=== PATIENT | female | born 1995 | race Two or more races ===

== ENCOUNTER 2016-11-19 12:35 | Inpatient (IN) | payer SELFPAY ==
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
[2016-11-19 13:44] LABS: % IMMATURE GRANULYOCYTES 0.7 % (0.0-1.1); ABSOLUTE IMMATURE GRANULOCYTES 0.06 10^3/uL (0.00-0.10); ADD DIFF? NO; ADD MORPH? NO; ADD SCAN? NO; ATYPICAL LYMPHOCYTE FLAG 0 (0-99); FRAGMENT RBC FLAG 0 (0-99); HEMATOCRIT 39.4 % (38.0-47.0); HEMOGLOBIN 13.9 g/dL (12.6-16.3); LEFT SHIFT FLG 0 (0-99); LIPEMIA HEMOLYSIS FLAG 90 (0-99); MEAN CELL HEMOGLOBIN 29.3 pg (27.9-34.1); MEAN CELL HEMOGLOBIN CONCENTR. 35.3 g/dL (32.4-36.7); MEAN CELL VOLUME 82.9 fL (81.5-99.8); MEAN PLATELET VOLUME 10.4 fL (8.7-11.7); PLATELET CLUMPS FLAG 0 (0-99); PLATELET COUNT 331 10^3/uL (150-400); RED BLOOD CELL COUNT 4.75 10^6/uL (4.18-5.33); RED CELL DISTRIBUTION WIDTH 12.9 % (11.5-15.2)
[2016-11-19 13:51] LABS: ANION GAP 17 mEq/L (8-16); CALCIUM 9.6 mg/dL (8.5-10.4); CARBON DIOXIDE 16 mEq/l (22-31); CHLORIDE 104 mEq/L (97-110); CREATININE 0.7 mg/dL (0.6-1.0); GLOMERULAR FILTRATION RATE > 60; GLUCOSE 77 mg/dL (70-100); POTASSIUM 4.3 mEq/L (3.5-5.2); SODIUM 137 mEq/L (134-144)
[2016-11-19 14:07] LABS: ETHANOL SERUM < 10 mg/dL (0-10)
[2016-11-20] MEDS: PRENATAL VIT 1 EACH TAB PO SCH (08:46)
[2016-11-20] MEDS ORDERED: MAG HYDROX/AL HYDROX/SIMETH 30 ML UDCUP PO PRN (13:25)
[2016-11-20] MEDS ORDERED: MAGNESIUM HYDROXIDE 30 ML UDCUP PO PRN (13:25)
[2016-11-20] MEDS ORDERED: ACETAMINOPHEN 325 MG TAB PO PRN (13:25)
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
[2016-11-21] MEDS: PRENATAL VIT 1 EACH TAB PO SCH (08:33)
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
[2016-11-21] MEDS ORDERED: BACITRACIN OINTMENT 1 PACKET TP ONE (20:33)
[2016-11-22 06:25] VITALS: BP 100/56; PULSE 76; RESP 16; TEMP 98.4; O2SAT 97
[2016-11-22] MEDS: PRENATAL VIT 1 EACH TAB PO SCH (11:51)
--- NOTE | 2016-11-22 13:06 | SOAPPROG ---
SOAP Progress Note Assessment/Plan: Assessment: Plan: M-1 expiring today. pt desires discharge. no indication for continued hospitalization. f/u appts in place. stable for d/c. denied SI. future-oriented and with "good" mood and full affect. sister and boyfriend will pickle cutter. discharge dictation to follow. Objective: Vital Signs Temp Pulse Resp BP Pulse Ox 36.9 C 76 16 100/56 L 97 11/22/16 06:00 11/22/16 06:00 11/22/16 06:00 11/22/16 06:00 11/22/16 06:00 Laboratory Results 11/19/16 Unknown - Time Spent With Patient Time Spent With Patient: 35min - Pending Discharge Pending Discharge Within 24 Hours: Yes Pending Discharge Date: 11/22/16 Pending Discharge Time: 11:00 ICD10 Worksheet Patient Problems: Problems Problem Status Onset Suicidal ideation Acute
--- NOTE | 2016-11-24 16:22 | BDS ---
[f rep st] BEHAVIORAL HEALTH DISCHARGE SUMMARY BRIEF HISTORY: The patient is a 21-year-old [employer] female who was sent to the [facility] ED on an M-1 from [facility] after she presented there with her sister. She had attempted suicide the night before by cutting on herself in the bathtub while intoxicated. Earlier in the evening she attempted to hang self from shower curtain following a fight with her sister and feeling hopeless. Per patient, she had not been this intoxicated in six months. Due to the two suicide attempts within the prior 24 hours, [facility] and send her to ED for further evaluation, and she was admitted to the inpatient psychiatry unit. While in the ED, she found out she was . Her chief complaint on admission was "I just act impulsively sometimes." She is a senior at [employer] on a scholarship from [facility] who is living with her twin sister, who also is attending the [employer] engineering program on scholarship. Patient reports functioning normally over the past several months but experienced some interpersonal conflicts over the past week. The conflict was over her being in a relationship with a previously good friend's ex- boyfriend approximately 4 days prior to admission. Then the following day, the patient had a conflict with her sister around a boyfriend that her sister is seeing that she did not feel comfortable having around. The conflict with her sister became physical the following day, which was quite emotionally upsetting to the patient. After having the initial conflict with her previously good friend, she admitted taking a handful of prescription sleeping medication, then went to bed, and did not disclose this. Following the argument with her sister and physical conflict, she went to the bathroom, locked the door, and tied the sash from her robe around her neck, hanging it over the shower curtain, which subsequently fell down and her sister heard this, came in and saw her with the sash around her neck. After telling her sister everything was okay, nothing else was done. Later that evening she went out with her sister and friends and her boyfriend and "got really drunk." When they returned to her home, patient reports she apparently went to the bathroom, locked the door, turned on the bathtub, and began making superficial cuts on her wrists with a knife. Subsequently, her boyfriend broke the door down, got her out of the tub and took her to bed where she slept until the next morning. She then talked with her sister who took her to [facility] and they placed her on an M1 hold as noted above. Patient denied any longer feeling suicidal but was admitted for further evaluation. She consistently reported feeling this had been an acute issue, and did not give any symptoms consistent with a major depressive episode or other major mood disorder, and did not feel she needed any medication because she believed this was situational. She did admit that finding out she was while in the emergency department was an additional stressor, and the was experiencing the stress of school, which starts on 11/23/2016, due to her being on academic probation and needing to get good grades this year in order to graduate. She also worried about her relationship with her sister since it had been more conflictual recently. HOSPITAL COURSE: The patient was admitted to the unit and did engage in the therapeutic milieu and attended groups. There were no attempts to harm herself, and she consistently reported that her suicide attempts had been impulsive, which she regretted, and she did not recall details of the attempt with self- inflicted superficial lacerations due to being very intoxicated. She consistently related the incidents, as reported on admission, during interview again over the weekend. She was able to talk about all of her psychosocial stressors and interpersonal drama occurring over the previous week which had been upsetting to her. She states she was feeling really angry with her friends about "stupid" things. She felt upset initially because she felt her sister was taking her friend's side and was "against" her being with her current boyfriend "Cornelius" since he was an ex-boyfriend of a good friend. Patient related other conflicts with her sister occurring this week, including her frequently having another boy over to their place, who had previously been briefly involved with the patient and bragged about being with the both sisters. This she felt was disrespectful, and she was upset by her sister often having him over. Since being in the hospital, the Summer had an opportunity to speak more with her sister about recent events and her feelings, and felt supported by her. She was glad to have resolved the conflict with her sister as she feels close to her. She reports that she also spoke with her parents, which helped also resolve the conflicts between the sisters, but she did not want them to know about her self harm attempts or hospitalization. Patient states all were in agreement "to not let any guys sleep over at the house" anymore. Also, patient reports she and her sister committed to not engage in any more physical aggression towards each other. Since they share finances, she said they agreed that whomever started a fight would have to pay the other one money. She feels this would work for them. Another positive for Summer was that her sister "got to know and respect" her boyfriend, who apparently is the father of this . Patient reports her sister "likes Cornelius" because she noticed that he had been respectful and supportive through recent events. Summer is looking forward to returning to [employer] [place] for the holidays/ winter break with her sister. She reports they already got tickets to return. She states last when she returned to [employer] [facility] [place], "everything was normal, " there was "no drama". When there last year, she felt her mood was good, and that she did not feel she needed any medications, as she has a history of taking Lexapro. She was able to focus on her studies last semester (Spring 2016) , admits to drinking much less, and did make a little bit better grades. She related that the prior Fall 2015 she was drinking more and grades were dropping so she "had to change" her behaviors and "focus on school", which she did in Spring, and feels she must now do again. She denied any symptoms of Major Depressive d/o, denied any clear manic or hypomanic symptoms or history, or any psychotic symptoms or history of such. If team felt strongly that she needed medications, she would take them, but she preferred not to, again reiterating that this was situational and she had felt stable prior. Education was done around alcohol use and her binging pattern, its effects on mental health and impulse control and judgment, and , and also with concerns about her positive family history. Summer agreed she needed to abstain, and planned to try to do so and focus instead on making and maintaining good grades for the next 3 semesters in order to graduate. She states sister, who is in the same program, has an easier time with the academics but they have agreed to work together to focus on graduating. Patient also was able to talk about the therapeutic benefit she received from attending groups and talking with peers, also reading the "Suicide is Forever" book. She felt this put many things in perspective and was "eye-opening." She feels she had never been that much of an "emotional mess" as she was over the prior week. Regarding her reported overdose on sleeping medication 1 week earlier, she reports that she "just wanted to sleep" and took "only 10" pills of what she thinks were hydroxyzine. She reports she knew this would not be harmful as she was prescribed to take 3 times a day maximum p.r.n. from an old prescription, and knew these pills were not strong since it was a very low dose and she had Googled information about the medicine and dosing, determining she could take more than prescribed without any significant adverse effects. She agreed this was unwise and would not do so again. Regarding her drinking, she did acknowledge binge drinking, and did not recognize that this would be considered problematic drinking if it was very infrequent. Alcohol use and patterns were discussed, including family history of alcoholism (father), and her risk for alcohol use disorder. She admitted that she will go for long periods of time without any drinking, or just 2-3 socially, and then will binge, become quite intoxicated and black out. She does not like experiencing blackouts and not remembering what happened. She talked with another roommate from [place], and with her boyfriend, both of whom will support her avoiding alcohol and will find other enjoyable outlets. She agreed to avoid also due to her , which she plans to not continue. Additionally, she reports speaking with another student peer on the inpatient unit who had a drinking problem but is in sobriety, asking him how he was able to not drink "when everyone at seems to be partying and drinking". He gave her some helpful suggestions. She states communicating with him was helpful, and it was helpful to know that other individuals had similar issues and were getting help. Summer reports plans to keep her followup appointment at [facility] this 11/25/2016, at 11:30 a.m. She is not sure of this conflicts with any classes. If it does, she will try to reschedule but if not able to, she states she will prioritize the [facility] appointment and get a doctor's note for missing class. student records coordinator provided patient with information for the substance counseling center on campus, [facility]. Patient did know about this and had not previously explored that resource but now planned to do so, to help address her drinking. She did state she drank more regularly 1 year ago, during fall, which adversely affected her grades, and would like to not do so now. She was advised to completely abstain due to risks, and also , especially if she is not entirely certain as to what she will do with the . Patient was encouraged to engage in DBT group in the community, although this may be offered at [facility]. DBT was encouraged to help patient with skill development, emotional/affect regulation and mindfulness strategies. The patient did seem interested and reports she will inquire further about this. Options for follow up for her were reviewed, including [facility] and [facility], to help her make a decision around her . Presently she feels "90%" sure that she will terminate the . She states that Cornelius has told her it was her decision. She was instructed to take vitamins after discharge as long as her decision was not finalized. Patient was appropriately concerned about financial cost of hospitalization since her insurance from [employer] [facility] she did not think covered Mental Health. She will explore this and talk with the financial department regarding a payment plan. She did complete a safety plan and she was also able to talk about feeling ashamed about her suicide attempt. She stated that the hanging attempt was "so my sister would feel bad", and she felt "even worse" thinking about what her parents' reaction would be to know that she tried to harm herself. She feels very close to her family in [facility] [facility], and is eager to return to see them this Mehul. She does admit feeling a lot of pressure on her to do all these last 3 semesters, because if she does not graduate, her parents will need to pay back the scholarship money which may necessitate them selling their house, she thinks. 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 MENTAL STATUS EXAM ON DISCHARGE: Patient was casually dressed with long, brushed/kempt hair with good eye contact, a normal speech rate and volume. Mood was "good." Affect was full and appropriate range. She was smiling and engaging appropriately with peers and staff and during interview. She consistently denied any thoughts, even fleeting, of suicide, and denied having any regrets of attempts not being successful. She denies any thoughts of harming others. Thought processes were linear and goal directed, asking appropriate questions, and expressing future-oriented thinking. There was no evidence of psychosis, no delusional thoughts, and she denied any AH/VH or any other psychotic symptoms. Insight and judgment were both improved and fair to good, cognition was intact, and she was alert and oriented x4. ADMISSION DIAGNOSIS: 1. Depressive disorder, unspecified. 2. Interpersonal conflicts. 3. Family conflicts. 4. Academic stress. 5. Recent . DISCHARGE DIAGNOSIS: 1. Adjustment disorder with mixed disturbance of emotions and conduct. 2. Alcohol use disorder, unspecified. 3. Early 4. Interpersonal conflicts, academic probation FOLLOWUP RECOMMENDATIONS: M-1 on day of discharge and patient did not meet criteria for certification, and patient desired to be discharged since school was starting the next day and she had follow up appointment in place. Further hospitalization was not indicated. Followup appointment scheduled at [facility] on 2016 at 11:30 a.m. Patient was strongly encouraged to maintain abstinence from alcohol, and was provided with information on [facility] for substance counseling on campus. She would likely benefit from DBT and she was provided with information on available DBT group therapy in the community, and can also inquire about this at [facility]. Contact information was provided for [facility] and [facility] to address and follow up on her . If she does, or even does not, choose to continue her , it is recommended that she still establish with and follow up regularly with an outpatient therapist as this will likely add emotional stress requiring support and coping strategies. Patient was not felt to meet any major [place] mood disorder criteria, and there was no indication to start any psychiatric medication, and patient was also not interested. She did take Lexapro in the past and would need to be engaged in outpatient mental health followup to assess whether restarting a medication such as an SSRI may be beneficial in the future. Sister and boyfriend came to unit to pick the patient up and return with her to her apartment. They felt comfortable taking patient home, and patient was eager for discharge and ready to start school tomorrow. Summer was felt to be at low acute risk of self harm, but at chronic elevated risk especially if she does not follow up with recommended treatment. MEDICATIONS: none except vitamins while . /[id number]/MODL MTDD
== END 2016-11-22 13:05 | disposition home or self-care (01) | DRG 914 ==
LOC: BBEH 21:00
PROVIDERS: ADMIT Psychiatry & Neurology Psychiatry; ATTEND Psychiatry & Neurology Behavioral Neurology & Neuropsychiatry
DX: T14.91 Suicide attempt (principal); S51.812A Laceration without foreign body of left forearm, initial encounter; X78.1XXA Intentional self-harm by knife, initial encounter; Y92.002 Bathroom of unspecified non-institutional (private) residence as the place of occurrence of the external cause; F32.9 Major depressive disorder, single episode, unspecified; Z91.5 Personal history of self-harm; Z33.1 Pregnant state, incidental; Z81.1 Family history of alcohol abuse and dependence; Z73.9 Problem related to life management difficulty, unspecified; Z72.89 Other problems related to lifestyle
CPT/HCPCS: 80305; G0480